=== PATIENT | male | born 1930 | race Caucasian/White ===

== ENCOUNTER 2016-10-13 09:46 | Emergency (ER) | payer MEDICARE ==
[~2016-10-13 09:46] MED LIST: ASPIR 8181 MG PO; LOPRESSOR50 MG PO; SYNTHROID100 MCG PO
== END 2016-10-13 13:50 | disposition home or self-care (01) ==
LOC: ER 09:46
DX: I48.91 Unspecified atrial fibrillation (principal); R05 Cough; R06.02 Shortness of breath; I10 Essential (primary) hypertension; Z79.82 Long term (current) use of aspirin; Z79.899 Other long term (current) drug therapy
CPT/HCPCS: 36415; 96360

== ENCOUNTER 2016-10-23 07:39 | Emergency (ER) | payer MEDICARE | END 2016-10-23 08:38 | disposition home or self-care (01) | LOC: ER 07:39 | DX: I10 Essential (primary) hypertension (principal); K30 Functional dyspepsia; I48.91 Unspecified atrial fibrillation; Z79.82 Long term (current) use of aspirin; Z79.899 Other long term (current) drug therapy ==